=== PATIENT | male | born 1975 | race Caucasian/White ===

== ENCOUNTER 2019-06-19 10:49 | Inpatient (IN) | payer OTHER ==
[~2019-06-19] VITALS: Ht 177.8 cm; Wt 124.4 kg
[2019-06-19 11:07] VITALS: BP 122/67
--- NOTE | 2019-06-19 11:23 | NUR ---
FLU SWAB COLLECTED.
--- NOTE | 2019-06-19 11:25 | NUR ---
Patient ambulated to bed 5. RN evaluating patient at bedside.
--- NOTE | 2019-06-19 11:28 | NUR ---
Dr. Vora is evaluating the patient at bedside.
--- NOTE | 2019-06-19 11:47 | NUR ---
loom technician at bedside.
--- NOTE | 2019-06-19 13:07 | NUR ---
MD MADE AWARE OF LOW BP, AND LOW 02 SATURATION. ORDERS TO FOLLOW.
[2019-06-19] MEDS ORDERED: ALBUTEROL SULFATE/IPRATROPIU 3 ML SOL IH ONE (13:10)
[2019-06-19] MEDS ORDERED: NACL 0.9% 1,000 ML IV ONE ×3 (13:10→15:15)
[2019-06-19] MEDS ORDERED: DOXYCYCLINE 100 MG CAP PO STA (13:12)
--- NOTE | 2019-06-19 13:14 | NUR ---
Dr. Vora is evaluating the patient at bedside.
[2019-06-19] MEDS ORDERED: cefTRIAXone 1,000 MG VIAL ONE (13:23)
--- NOTE | 2019-06-19 13:26 | NUR ---
Breathing treatment administered by respiratory therapist at bedside.
[2019-06-19 14:04] LABS: BASOPHILS % (AUTO) 0.8 % (0.0-2.0); EOSINOPHILS % (AUTO) 0.3 % (0.0-4.0); HEMATOCRIT 43.5 % (36-52); HEMOGLOBIN 14.9 g/dL (12.0-18.0); LYMPHOCYTES # (AUTO) 0.6 K/uL (2.0-11.5); LYMPHOCYTES % (AUTO) 11.2 % (20.5-51.1); MEAN CORPUSCULAR HEMOGLOBIN 33 pg (27-31); MEAN CORPUSCULAR HGB CONC 34 g/dL (33-37); MEAN CORPUSCULAR VOLUME 96.9 fL (80-94); MONOCYTES # (AUTO) 0.7 K/uL (0.8-1.0); MONOCYTES % (AUTO) 12.3 % (1.7-9.3); NEUTROPHILS # (AUTO) 4.3 K/uL (1.8-7.7); NEUTROPHILS % (AUTO) 75.4 % (42.2-75.2); PLATELET COUNT (AUTO) 130 K/uL (140-450); RED BLOOD CELL COUNT(AUTO) 4.49 MIL/uL (4.20-6.10); RED CELL DISTRIBUTION WIDTH 12.7 % (11.6-13.7); WHITE BLOOD COUNT (AUTO) 5.7 K/uL (4.8-10.8)
[2019-06-19 14:18] LABS: ALBUMIN 3.6 g/dL (3.4-5.0); ANION GAP 12.4 (8-16); CARBON DIOXIDE 28.2 mmol/L (21-32); CREATININE 1.2 mg/dL (0.6-1.3); POTASSIUM 3.6 mmol/L (3.5-5.1); TOTAL BILIRUBIN 0.5 mg/dL (0.0-1.0)
--- NOTE | 2019-06-19 14:18 | NUR ---
Stable. VSS. Afebrile now. BP low. NS bolus running. All labs sent. Abx given as ordered. To be admitted. Awaiting bed.
[2019-06-19] MEDS ORDERED: MORPHINE SULFATE 2 MG/ML SYR IVP PRN (15:00)
[2019-06-19] MEDS ORDERED: HYDROcodone/APAP 5/325 MG 1 TAB TAB PO PRN (15:00)
[2019-06-19] MEDS ORDERED: DOCUSATE SODIUM 100 MG GELCAP PO PRN (15:00)
[2019-06-19] MEDS ORDERED: ONDANSETRON 4 MG/2 ML VIAL IM/IVP PRN (15:00)
[2019-06-19] MEDS ORDERED: LORazepam 2 MG/ML VIAL IM/IVP PRN (15:00)
[2019-06-19] MEDS ORDERED: ACETAMINOPHEN 325 MG TAB PO PRN (15:00)
[2019-06-19] MEDS ORDERED: CITA20TA15 PO ×2 (15:05→18:17)
[2019-06-19] MEDS ORDERED: BUS5 PO ×2 (15:05→18:17)
[2019-06-19] MEDS ORDERED: ARIP882S IM ×2 (15:05→18:17)
[2019-06-19] MEDS ORDERED: DIVA500T1 PO ×2 (15:05→18:17)
[2019-06-19] MEDS ORDERED: IBUP-1842 PO ×2 (15:05→18:17)
[2019-06-19] MEDS ORDERED: MULT-153 PO ×2 (15:05→18:17)
[2019-06-19] MEDS ORDERED: ALBUTEROL SULFATE/IPRATROPIU 3 ML SOL IH PRN (15:05)
[2019-06-19] MEDS ORDERED: DIVA250E1 PO (15:05)
[2019-06-19] MEDS ORDERED: QUET200T PO ×2 (15:05→18:17)
[2019-06-19] MEDS ORDERED: SYN.05 PO ×2 (15:05→18:17)
[2019-06-19] MEDS ORDERED: QUET25TA PO ×2 (15:05→18:17)
--- NOTE | 2019-06-19 15:33 | NUR ---
Stable. VSS. Afebrile. Mild SOB. 02 Sat WNL on 4 L NC. Has been admitted. Report to Floor. Ambulated to . Placed in bed. Nurse aware.
[2019-06-19 15:35] LABS: MAGNESIUM 1.7 mg/dL (1.8-2.4); PHOSPHORUS 3.4 mg/dL (2.5-4.9); THYROID STIMULATING HORMONE 0.69 uIU/mL (0.34-3.74)
--- NOTE | 2019-06-19 15:35 | NUR ---
RECEIVED PT FROM ER NURSE FOR CONTINUITY OF CARE. PT IS AAOX4, AMBULATORY. PT ABLE TO MAKE NEEDS KNOWN. PT HAS INTELLECTUAL DISABILITY BUT CAN MAKE DECISIONS FOR HIMSELF. PT HAS 4L O2 VIA NC RUNNING. O2 SAT IS 95%. PT DENIES SOB OR RESPIRATORY DISTRESS. PT SKIN INTACT. MRSA SWAB TAKEN AND SENT TO LAB. PT HAS RIGHT HAND 22G PATENT AND INTACT INFUSING NS BOLUS FOR MILD HYPOTENSION. DISCUSSED POC WITH PT AND CAREGIVER AND BOTH VERBALIZED UNDERSTANDING. ALL SAFETY MEASURES IN PLACE. BED IN LOW POSITION, CALL LIGHT WITHIN REACH. EXPLAINED TO PT HOW TO USE CALL LIGHT AND HE RETURNED DEMONSTRATION OR ITS USE. BOARD UPDATED. WILL ROUND FREQUENTLY ON PT.
[2019-06-19 15:44] LABS: PROTHROMBIN TIME 10.4 secs (10.8-13.4)
[2019-06-19] MEDS ORDERED: MAGNESIUM OXIDE 400 MG TAB PO SCH (15:45)
[2019-06-19 16:00] VITALS: BP 105/59
[2019-06-19] MEDS ORDERED: AZITHROMYCIN 250 MG TAB PO SCH (16:00)
[2019-06-19] MEDS: NACL 0.9% 1,000 ML IV SCH (17:14)
--- NOTE | 2019-06-19 17:27 | NUR ---
PT RESTING IN BED. SCHEDULED MEDS ADMINISTERED. PT MOTHER AT BEDSIDE. ALL NEEDS MET. PT WAS GIVEN SANDWICH WHILE HE WAITS FOR DINNER. WILL CONTINUE TO ROUND FREQUENTLY ON PT. BED IN LOW POSITION, CALL LIGHT WITHIN REACH.
--- NOTE | 2019-06-19 19:30 | NUR ---
RECEIVED PT AWAKE ALERT AND ORIENTED X3, WITH INTELLECTUAL DISABILITY, ABLE TO MAKE NEEDS KNOWN, WITH HIS MOM ON THE BED SIDE, RESP EVEN AND EASY,WITH O2 4L NC,SATS 95%, PT DENIES ANY DISCOMFORT AT THIS TIME, IV INFUSING ON RT HAND ,INTACT AND PATENT, AMBULATES TO BATHROOM,ST WITH EP=[phone] ON THE DOCK MANAGER, CALL LIGHT ON REACH.
--- NOTE | 2019-06-19 19:45 | NUR ---
ENDORSED PT TO REAL ESTATE SPECIALIST RN FOR CONTINUITY OF CARE. PT IN STABLE CONDITION AT THIS TIME.
[2019-06-19 20:00] VITALS: BP 125/73
[2019-06-19] MEDS: ALBUTEROL SULFATE/IPRATROPIU 3 ML SOL IH SCH (20:00)
[2019-06-19] MEDS: OSELTAMIVIR PHOSPHATE 75 MG CAP PO SCH (20:53)
[2019-06-19] MEDS: DIVALPROEX 500 MG TABER PO SCH (20:53)
[2019-06-19] MEDS: busPIRone 5 MG TAB PO SCH (20:55)
[2019-06-19] MEDS ORDERED: DOXYCYCLINE 100 MG CAP PO SCH (21:00)
--- NOTE | 2019-06-19 21:00 | NUR ---
PM MEDS GIVEN, PT TOLERATED WELL, CONTINUE TO MONITOR PT
--- NOTE | 2019-06-19 23:00 | NUR ---
PT SLEEPING HR= 130-138, BP 113/69, TEMP 99.6, RESP 22,DR OLSON NOTIFIED, RESIDENT{SEAMUS] CHECKED PT NO NEW ORDERS GIVEN ,CONTINUE TO MONITOR PT.
[2019-06-20] VITALS: BP 140/61
[2019-06-20] MEDS ORDERED: NACL 0.9% 1,000 ML IV ONE
[2019-06-20] MEDS: NACL 0.9% 1,000 ML IV SCH ×3 (02:16→23:55)
--- NOTE | 2019-06-20 02:30 | NUR ---
RECEIVED BEDSIDE REPORT FROM DIP PAINTER RN FOR PT'S CONTINUITY OF CARE. PT IS ASLEEP, WITH NO SIGNS OF DISTRESS. PT'S MOTHER AT BEDSIDE. WILL CONTINUE TO MONITOR PT.
--- NOTE | 2019-06-20 02:38 | NUR ---
PT SLEEPING , NO SIGN OF DISCOMFORT NOTED , ENDORSED PT TO ANOTHER NURSE FOR CONTINUITY OF CARE AT THIS TIME
[2019-06-20 04:00] VITALS: BP 104/53
[2019-06-20] MEDS ORDERED: CRUSHER, PILL MC ONE (05:57)
[2019-06-20] MEDS: LEVOTHYROXINE 0.05 MG TAB PO SCH (06:07)
--- NOTE | 2019-06-20 06:07 | NUR ---
ADMINISTERED SCHEDULED PO MEDICATION ORDERED. PT TOLERATED IT WELL. PT TEACHING GIVEN, PT AND MOTHER VERBALIZED UNDERSTANDING. PT'S NEEDS MET, DENIES ANY PAIN OR DISCOMFORT. WILL ENDORSE TO AM SHIFT RN FOR PT'S CONTINUITY OF CARE.
[2019-06-20] MEDS ORDERED: BENZONATATE 100 MG CAPLF PO PRN (06:40)
--- NOTE | 2019-06-20 07:24 | NUR ---
SHIFT REPORT RECEIVED FROM FITNESS PROFESSIONAL NURSE. PT IS IN BED AWAKE AND RESPONDING. NO DISTRESS NOTED. FAMILY BY BEDSIDE. CALL LIGHT IN REACH.
[2019-06-20 07:36] LABS: CHOL/HDL RATIO 2.8 (1-4.5)
[2019-06-20] MEDS: BUDESONIDE 0.5 MG/2 ML NEBU INH SCH ×2 (07:44→20:12)
[2019-06-20] MEDS: ALBUTEROL SULFATE/IPRATROPIU 3 ML SOL IH SCH ×3 (07:45→20:10)
[2019-06-20 08:00] VITALS: BP 108/61
--- NOTE | 2019-06-20 08:36 | NUR ---
PATIENT HAS BEEN SCREENED AND CATEGORIZED MODERATE NUTRITION RISK. PATIENT WILL BE SEEN WITHIN 3-5 DAYS OF ADMISSION. 06/22/19 06/24/[address]
[2019-06-20] MEDS ORDERED: AZITHROMYCIN 250 MG TAB PO SCH (09:00)
[2019-06-20] MEDS: MULTIVITAMIN 1 TAB PO SCH (09:07)
[2019-06-20] MEDS: OSELTAMIVIR PHOSPHATE 75 MG CAP PO SCH ×2 (09:07→20:05)
[2019-06-20] MEDS: QUEtiapine FUMARATE 25 MG TAB PO SCH (09:08)
[2019-06-20] MEDS: CITALOPRAM 20 MG TAB PO SCH (09:08)
[2019-06-20] MEDS: QUEtiapine FUMARATE 100 MG TAB PO SCH ×3 (09:09→17:07)
[2019-06-20] MEDS: DIVALPROEX 500 MG TABER PO SCH ×2 (09:10→20:05)
[2019-06-20] MEDS: busPIRone 5 MG TAB PO SCH ×2 (09:11→20:05)
--- NOTE | 2019-06-20 09:30 | NUR ---
PT IS IN BED AT THIS TIME. NO DISTRESS NOTED. IV PATENT. PT IS IN STABLE CONDITION. FAMILY BY BEDSIDE.
[2019-06-20 12:00] VITALS: BP 108/56
--- NOTE | 2019-06-20 12:00 | NUR ---
PT IS IN BED WITH NO SIGNS OF DISTRESS. FAMILY BY BEDSIDE. CALL LIGHT IN REACH.
[2019-06-20 16:00] VITALS: BP 110/65
--- NOTE | 2019-06-20 16:30 | NUR ---
PT IS IN BED AT THIS. IV LINE FROM RIGHT HAND WAS ACCIDENTALLY REMOVED BY THE PATIENT. NO ACTIVE BLEEDING NOTED. CATHETER INTACT. INSERTED IV TO LEFT WRIST. PT TOLERATED WELL. FAMILY BY BEDSIDE. CALL LIGHT IN REACH.
[2019-06-20 17:12] LABS: APPEARANCE,URINE CLEAR (CLEAR); BILIRUBIN,URINE NEGATIVE (NEGATIVE); BLOOD, URINE NEGATIVE (NEGATIVE); COLOR,URINE YELLOW (YELLOW); LEUKOCYTE ESTERASE ,URINE NEGATIVE (NEGATIVE); NITRITE, URINE NEGATIVE (NEGATIVE); UGLUCOSE NEGATIVE (NEGATIVE)
[2019-06-20 17:20] LABS: BARBITURATE, URINE NEG. ng/ml (NEG <=200); BENZODIAZEPINE, URINE NEG. ng/mL (NEG <=200); CANNABINOID, URINE NEG. ng/mL (NEG <=50); COCAINE, URINE NEG. ng/mL (NEG <=300); OPIATE, URINE NEG. ng/mL (NEG <=2000); PHENCYCLIDINE SCREEN,URINE NEG. ng/mL (NEG <=25)
--- NOTE | 2019-06-20 19:19 | NUR ---
SHIFT REPORT GIVEN TO MEDICAL COLLECTIONS NURSE. PT IS IN BED IN STABLE CONDITION. NO DISTRESS NOTED. CALL LIGHT IN REACH.
--- NOTE | 2019-06-20 19:20 | NUR ---
RECEIVED PT FROM ER NURSE FOR CONTINUITY OF CARE. PT IS AAOX4, AMBULATORY. PT ABLE TO MAKE NEEDS KNOWN. PT HAS INTELLECTUAL DISABILITY BUT CAN MAKE DECISIONS FOR HIMSELF. PT DENIES SOB OR RESPIRATORY DISTRESS. PT SKIN INTACT. IV SITE ON LEFT HAND 22G, PATENT AND INTACT INFUSING FLUID MD ORDERED. ALL SAFETY MEASURES IN PLACE. BED IN LOW POSITION, CALL LIGHT WITHIN REACH.
[2019-06-20 20:00] VITALS: BP_SYST 117; BP_SYST 139; BP_DIAS 75; BP_DIAS 86
--- NOTE | 2019-06-20 20:05 | NUR ---
GIVEN BUSPAR, DEPAKOTE, AND TAMIFLU MD ORDERED. PT TOLERATED WELL.
--- NOTE | 2019-06-20 23:55 | NUR ---
VS CHECKED, WITHIN PT'S BASELINE. WILL CONTINUE TO MONITOR.
[2019-06-21] VITALS: BP 117/75
[2019-06-21] MEDS ORDERED: VANCOMYCIN PER PHARMACY MC PRN (00:50)
[2019-06-21] MEDS ORDERED: VANCOMYCIN 1,000 MG VIAL ONE ×2 (01:13→02:46)
[2019-06-21] MEDS: VANCOMYCIN 1,000 MG in NACL 0.9% 250 ML IV SCH ×2 (01:22→02:54)
--- NOTE | 2019-06-21 01:22 | NUR ---
GIVEN VANCOMYCIN MD ORDERED. PT TOLERATED WELL.
--- NOTE | 2019-06-21 02:54 | NUR ---
GIVEN 2ND BAG OF VANCOMYCIN MD ORDERED. PT TOLERATED WELL.
[2019-06-21 04:00] VITALS: BP 121/70
--- NOTE | 2019-06-21 05:02 | NUR ---
PT AWAKE, LYING ON BED. NO ACUTE DISTRESS NOTED.
[2019-06-21] MEDS: LEVOTHYROXINE 0.05 MG TAB PO SCH (05:43)
--- NOTE | 2019-06-21 05:43 | NUR ---
GIVEN SYNTHROID MD ORDERED. PT TOLERATED WELL.
--- NOTE | 2019-06-21 06:38 | NUR ---
PT IN STABLE CONDITION. WILL ENDORSE PT TO DAY SHIFT NURSE FOR CONTINUOUS CARE.
[2019-06-21] MEDS: NACL 0.9% 1,000 ML IV SCH ×2 (06:58→16:51)
--- NOTE | 2019-06-21 07:06 | NUR ---
RECEIVED REPORT FROM NIGHT NURSE. PT IN THE BATHROOM, HAD A BOWEL MOVEMENT AT TIME OF BEDSIDE REPORT. FAMILY MEMBER AT THE BEDSIDE. DENIES PAIN, NO DISTRESS NOTED. IV SITE IN PLACE, PATENT AND ASYMPTOMATIC INFUSING PER ORDER IN RIGHT HAND 24G. RESPIRATIONS EVEN AND UNLABORED ON O2 4L NC. SAFETY MEASURES IN PLACE. CALL LIGHT WITHIN REACH, BED IN LOW POSITION. WILL CONTINUE TO MONITOR.
[2019-06-21 07:09] LABS: BASOPHILS % (AUTO) 0.7 % (0.0-2.0); EOSINOPHILS % (AUTO) 0.8 % (0.0-4.0); HEMATOCRIT 40.3 % (36-52); HEMOGLOBIN 13.3 g/dL (12.0-18.0); LYMPHOCYTES # (AUTO) 1.2 K/uL (2.0-11.5); LYMPHOCYTES % (AUTO) 33.7 % (20.5-51.1); MEAN CORPUSCULAR HEMOGLOBIN 32 pg (27-31); MEAN CORPUSCULAR HGB CONC 33 g/dL (33-37); MEAN CORPUSCULAR VOLUME 97.1 fL (80-94); MONOCYTES # (AUTO) 0.7 K/uL (0.8-1.0); MONOCYTES % (AUTO) 19.4 % (1.7-9.3); NEUTROPHILS # (AUTO) 1.6 K/uL (1.8-7.7); NEUTROPHILS % (AUTO) 45.4 % (42.2-75.2); PLATELET COUNT (AUTO) 95 K/uL (140-450); RED BLOOD CELL COUNT(AUTO) 4.15 MIL/uL (4.20-6.10); RED CELL DISTRIBUTION WIDTH 12.8 % (11.6-13.7); WHITE BLOOD COUNT (AUTO) 3.4 K/uL (4.8-10.8)
[2019-06-21] MEDS: ALBUTEROL SULFATE/IPRATROPIU 3 ML SOL IH SCH ×3 (07:31→19:24)
[2019-06-21] MEDS: BUDESONIDE 0.5 MG/2 ML NEBU INH SCH ×2 (07:32→19:24)
--- NOTE | 2019-06-21 07:47 | NUR ---
TOLERATED INCENTIVE SPIROMETRY THERAPY WELL WITHOUT ADVERSE REACTIONS NOTED ENCOURAGED PATIENT TO USE INCENTIVE SPIROMETRY EVERY 1-2 HOURS WHILE AWAKE MOTHER IN ROOM
[2019-06-21 07:54] LABS: POTASSIUM 3.8 mmol/L (3.5-5.1)
[2019-06-21 07:55] LABS: ANION GAP 5.5 (8-16); CARBON DIOXIDE 36.3 mmol/L (21-32); CREATININE 0.7 mg/dL (0.6-1.3)
[2019-06-21 08:00] VITALS: BP 139/77
[2019-06-21 08:18] LABS: MAGNESIUM 2.2 mg/dL (1.8-2.4); PHOSPHORUS 2.8 mg/dL (2.5-4.9)
[2019-06-21] MEDS: QUEtiapine FUMARATE 25 MG TAB PO SCH (09:41)
--- NOTE | 2019-06-21 09:41 | NUR ---
MEDICATIONS ADMINISTERED PER ORDER. PT TOLERATED WELL, NO DISTRESS NOTED. DENIES PAIN AT THIS TIME. SAFETY MEASURES IN PLACE, CALL LIGHT WITHIN REACH, WILL CONTINUE TO MONITOR.
[2019-06-21] MEDS: MULTIVITAMIN 1 TAB PO SCH (09:42)
[2019-06-21] MEDS: CITALOPRAM 20 MG TAB PO SCH (09:42)
[2019-06-21] MEDS: OSELTAMIVIR PHOSPHATE 75 MG CAP PO SCH ×2 (09:42→20:48)
[2019-06-21] MEDS: QUEtiapine FUMARATE 100 MG TAB PO SCH ×3 (09:42→17:13)
[2019-06-21] MEDS: DIVALPROEX 500 MG TABER PO SCH ×2 (09:42→20:47)
[2019-06-21] MEDS: busPIRone 5 MG TAB PO SCH ×2 (09:43→20:47)
--- NOTE | 2019-06-21 11:29 | NUR ---
PT IN BED ASLEEP, NO DISTRESS NOTED. SAFETY MEASURES IN PLACE, CALL LIGHT WITHIN REACH. WILL CONTINUE TO MONITOR.
[2019-06-21 12:00] VITALS: BP 135/79
[2019-06-21] MEDS: VANCOMYCIN 1,500 MG in DEXTROSE 5% 500 ML IV SCH ×2 (12:25→20:48)
--- NOTE | 2019-06-21 12:30 | NUR ---
MEDICATIONS ADMINISTERED PER ORDER. PT TOLERATED WELL, NO DISTRESS NOTED. WILL CONTINUE TO MONITOR.
--- NOTE | 2019-06-21 14:08 | NUR ---
DC PLANNIN YRS OLD MALE PATIENT WAS ADMITTED FROM [facility](ASSISTED [facility]IV[facility]) WITH A DX OF INFLUENZA ,HYPOXIA AND PNA. PT HAS A HX OF MILD INTELLECTUAL DISABILITY, TOURETTE'S SYNDROME ,ANXIETY DISORDER AND HYPOTHYROIDISM . CXRAY SHOWED PNEUMONIA. STARTED IVF ,ROCEPHIN AND VIBRAMYCIN PO ,TAMIFUL 75MG PO BLOOD SPUTUM AND URINE CULTURE PENDING RT PROTOCOL. DC PLAN PER [facility] VS HOME FOR IV ABX CM TO FOLLOW. Addendum: 06/23/19 at 1208 by Merissa Painting CM DC PLANNING: PATIENT HAS A DC ORDER TO GO TO SNF TO CONTINUE IV ABX , CALLED PT'S MOTHER [phone] SPOKE WITH ZAHEER. PER MOTHER WANTED SOME WHERE CLOSE TO [facility] AND ALSO THE PHYSICIAN'S TO FOLLOW. PROVIDED SOME SNF AROUND THE AREA ZAHEER CHOSE [facility]. IM LETTER AND CHOICE OF VENDOR GIVEN SIGNED BY THE MOTHER. FAXED ALL THE PAPER WORK TO [facility] ,RECEIVED A CALL FROM [facility] STATED WILL ACCEPT PATIENT AND CAN GO TO ROOM 25A . Addendum: 06/23/19 at 1424 by Merissa Painting CM DC PLANNING: PER MOTHER ZAHEER CHANGED HER MIND AND WANTED HER SON TO BE CLOSER TO [facility] AND CHOSE [facility] . LETI FROM [facility] CAME AND TALKED TO PATIENT AND MOTHER AND ACCEPTED PATIENT. PT CAN GO TO ROOM 16B [facility] BED, # TO GIVE REPORT [phone], CALLED [facility] SPOKE WITH VILMA FISCHER # [phone] ARRANGED TRANSPORT WITH [facility] ROLL OVER LOADER TIME 3PM. NOTIFIED JANELLE JAVIER.
--- NOTE | 2019-06-21 14:58 | NUR ---
MEDICATIONS ADMINISTERED PER ORDER, PT TOLERATED WELL, NO DISTRESS NOTED, DENIES PAIN. FAMILY MEMBERS AT THE BEDSIDE. SAFETY MEASURES IN PLACE. CALL LIGHT WITHIN REACH. WILL CONTINUE TO MONITOR.
[2019-06-21 16:00] VITALS: BP 117/70
--- NOTE | 2019-06-21 17:15 | NUR ---
MEDICATIONS ADMINISTERED PER ORDER. PT TOLERATED WELL. NO DISTRESS NOTED. LINEN AND GOWN CHANGED AT THIS TIME. FAMILY MEMBERS AT THE BEDSIDE. SAFETY MEASURES IN PLACE. CALL LIGHT WITHIN REACH.
--- NOTE | 2019-06-21 19:21 | NUR ---
REPORT GIVEN TO NIGHT NURSE FOR CONTINUITY OF CARE.
--- NOTE | 2019-06-21 19:30 | NUR ---
RECEIVED FROM AM RN IN BED AWAKE AND ALERT. MOTHER AT BEDSIDE. NO COMPLAINTS DONE. WILL CONTINUE WITH CARE FOR THE NIGHT. AFEBRILE. CARE PLANS DISCUSSED WITH THEM. CALL LIGHT WITH IN REACH. ON ISOLATION PRECAUTIONS FOR DROPLET INFLUENZA A.
--- NOTE | 2019-06-21 19:36 | NUR ---
PT PLACED ON 3LNC
[2019-06-21 20:00] VITALS: BP 116/72
--- NOTE | 2019-06-21 20:00 | NUR ---
RECEIVED PT. WITH IVF SITE D/CD BY PT. ACCIDENTALLY PER AM RN. INSERTED NEW IVF LINE TO RIGHT WRIST #22. TOLERATED WELL WITH GOOD BLOOD RETURN. MOTHER AT BEDSIDE AND ABLE TO VERBALIZE NEEDS WELL. ISOLATION PRECAUTIONS FOR FLU TYPE A. AFEBRILE.
--- NOTE | 2019-06-21 22:30 | NUR ---
PT. AWAKE AND WATCHING TV. ENCOURAGED TO SLEEP A ND REST. STATED HE WILL LATER. CALL LIGHT WITH IN REACH. MOTHER ALREADY SLEEPING . REMINDED TO CALL FOR ANY HELP HE MAY NEED. "OK"
[2019-06-22] VITALS: BP 125/64
--- NOTE | 2019-06-22 00:30 | NUR ---
SLEEPING AT THIS TIME. WOKE UP EASILY WHEN VITAL SIGNS TAKEN. NO COMPLAINTS DONE . TELEMETRY MONITORING.
--- NOTE | 2019-06-22 02:20 | NUR ---
SLEEPING. MOTHER AT BEDSIDE. CALL LIGHT WITH IN REACH. NO SOB. NO RESTLESSNESS.
[2019-06-22] MEDS: NACL 0.9% 1,000 ML IV SCH ×3 (02:58→22:38)
[2019-06-22 04:00] VITALS: BP 122/70
[2019-06-22] MEDS: VANCOMYCIN 1,500 MG in DEXTROSE 5% 500 ML IV SCH ×3 (05:38→21:23)
[2019-06-22] MEDS: LEVOTHYROXINE 0.05 MG TAB PO SCH (05:38)
--- NOTE | 2019-06-22 07:02 | NUR ---
AWAKE SINCE 5 AM WATCHING TV. NO COMPLAINTS OF ANY PAIN DONE. AFEBRILE.
--- NOTE | 2019-06-22 07:03 | NUR ---
RECEIVED REPORT FROM CENTERLESS GRINDER SET UP OPERATOR NURSE AT BEDSIDE FOR CONTINUITY OF CARE. PT AWAKE AND ALERT SITTING UP IN BED WATCHING TV. MOTHER AT BEDSIDE. NO COMPLAINTS AT THIS TIME. RESPIRATIONS EVEN AND UNLABORED ON 3L O2 VIA NC. UPDATED BOARD. IV IN PLACE ON RIGHT WRIST AT 22G, PATENT, INTACT, WITH IVF INFUSING WELL. PLAN OF CARE DISCUSSED WITH PATIENT AND MOTHER AT BEDSIDE, THEY VERBALIZED UNDERSTANDING. SAFETY AND DROPLET PRECAUTIONS IN PLACE, CALL LIGHT WITHIN REACH, WILL CONTINUE TO MONITOR PATIENT.
[2019-06-22 07:09] LABS: BASOPHILS % (AUTO) 0.3 % (0.0-2.0); EOSINOPHILS # (AUTO) 0.1 K/uL (0-0.4); EOSINOPHILS % (AUTO) 2.8 % (0.0-4.0); HEMATOCRIT 39.8 % (36-52); HEMOGLOBIN 13.4 g/dL (12.0-18.0); LYMPHOCYTES # (AUTO) 1.4 K/uL (2.0-11.5); LYMPHOCYTES % (AUTO) 32.3 % (20.5-51.1); MEAN CORPUSCULAR HEMOGLOBIN 33 pg (27-31); MEAN CORPUSCULAR HGB CONC 34 g/dL (33-37); MEAN CORPUSCULAR VOLUME 96.4 fL (80-94); MONOCYTES # (AUTO) 0.6 K/uL (0.8-1.0); MONOCYTES % (AUTO) 12.7 % (1.7-9.3); NEUTROPHILS # (AUTO) 2.2 K/uL (1.8-7.7); NEUTROPHILS % (AUTO) 51.9 % (42.2-75.2); PLATELET COUNT (AUTO) 111 K/uL (140-450); RED BLOOD CELL COUNT(AUTO) 4.13 MIL/uL (4.20-6.10); RED CELL DISTRIBUTION WIDTH 12.6 % (11.6-13.7); WHITE BLOOD COUNT (AUTO) 4.3 K/uL (4.8-10.8)
[2019-06-22 07:18] LABS: ANION GAP 8.3 (8-16); CARBON DIOXIDE 38.4 mmol/L (21-32); CREATININE 0.7 mg/dL (0.6-1.3); POTASSIUM 3.7 mmol/L (3.5-5.1)
[2019-06-22 08:00] VITALS: BP 122/76
[2019-06-22] MEDS: BUDESONIDE 0.5 MG/2 ML NEBU INH SCH ×2 (08:02→19:45)
[2019-06-22] MEDS: ALBUTEROL SULFATE/IPRATROPIU 3 ML SOL IH SCH ×3 (08:02→19:45)
--- NOTE | 2019-06-22 08:13 | NUR ---
TOLERATED INCENTIVE SPIROMETRY THERAPY WELL WITHOUT INCIDENT ENCOURAGED PATIENT WITH ACKNOWLEDGEMENT TO USE INCENTIVE SPIROMETRY EVERY 1-2 HOURS WHILE AWAKE
[2019-06-22 08:28] LABS: MAGNESIUM 1.9 mg/dL (1.8-2.4); PHOSPHORUS 3.4 mg/dL (2.5-4.9)
--- NOTE | 2019-06-22 08:30 | NUR ---
RECEIVED CRITICAL LAB VALUE VANCO TROUGH OF 23.5. 0500 VANCO GIVEN AT 0538, VANCO TROUGH DRAWN AT 0606 PER ODALYS FURNITURE REPRODUCER. PHARMACIST KAROLINA AWARE, NEW VANCO TROUGH WILL BE DRAWN BEFORE 1300 DOSE. PATIENT AND MOTHER AT BEDSIDE AWARE. SPOKE WITH ODALYS TO COORDINATE. WILL CONTINUE TO MONITOR PATIENT.
--- NOTE | 2019-06-22 08:45 | NUR ---
DR CRAMER IN TO SEE THE PATIENT.
[2019-06-22] MEDS: QUEtiapine FUMARATE 100 MG TAB PO SCH ×3 (09:08→16:43)
[2019-06-22] MEDS: MULTIVITAMIN 1 TAB PO SCH (09:08)
[2019-06-22] MEDS: QUEtiapine FUMARATE 25 MG TAB PO SCH (09:08)
[2019-06-22] MEDS: DIVALPROEX 500 MG TABER PO SCH ×2 (09:08→21:23)
[2019-06-22] MEDS: OSELTAMIVIR PHOSPHATE 75 MG CAP PO SCH ×2 (09:08→21:24)
[2019-06-22] MEDS: busPIRone 5 MG TAB PO SCH ×2 (09:08→21:24)
[2019-06-22] MEDS: CITALOPRAM 20 MG TAB PO SCH (09:08)
--- NOTE | 2019-06-22 09:10 | NUR ---
ORDERED MEDICATIONS GIVEN. PATIENT TOLERATED THEM WELL. MOTHER AT BEDSIDE. WILL CONTINUE TO MONITOR PATIENT.
--- NOTE | 2019-06-22 11:57 | NUR ---
ORDERED MEDICATION GIVEN. PATIENT TOLERATED THEM WELL, MOTHER AND BROTHER AT BEDSIDE. PATIENT HAS NO COMPLAINTS AT THIS TIME. SAFETY AND ISOLATION PRECAUTION IN PLACE, CALL LIGHT WITHIN REACH, WILL CONTINUE TO MONITOR PATIENT.
[2019-06-22 12:00] VITALS: BP 123/79
--- NOTE | 2019-06-22 13:00 | NUR ---
SPUTUM SAMPLE SENT TO LAB, WILL WAIT FOR RESULTS.
--- NOTE | 2019-06-22 13:58 | NUR ---
RECEIVED CALL FROM PHARMACIST HANY TURCIOS TROUGH WNL, HANY CAN BE GIVEN. HANY GIVEN. ORDERED MEDICATION GIVEN. PATIENT TOLERATED THEM WELL, MOTHER AND BROTHER AT BEDSIDE. SAFETY AND ISOLATION PRECAUTION IN PLACE, CALL LIGHT WITHIN REACH, WILL CONTINUE TO MONITOR PATIENT.
[2019-06-22 16:00] VITALS: BP 125/79
--- NOTE | 2019-06-22 16:43 | NUR ---
ORDERED MEDICATION GIVEN. PATIENT TOLERATED THEM WELL, MOTHER AND BROTHER AT BEDSIDE. VS WNL. SAFETY AND ISOLATION PRECAUTION IN PLACE, CALL LIGHT WITHIN REACH, WILL CONTINUE TO MONITOR PATIENT.
--- NOTE | 2019-06-22 19:21 | NUR ---
REPORT GIVEN TO BONDERITE OPERATOR NURSE AT BEDSIDE FOR CONTINUITY OF CARE. PATIENT IN STABLE CONDITION.
--- NOTE | 2019-06-22 19:30 | NUR ---
RECEIVED FROM AM RN IN BED SITTING UP WATCHING TV. MOTHER AT BEDSIDE. NO COMPLAINTS OF PAIN. GOOD AFFECT. CALL LIGHT WITH N REACH. ENCOURAGED TO CALL FOR ANY HELP HE MAY NEED. AFEBRILE. NO NOTED COUGHING AT THIS TIME. ISOLATION PRECAUTION RT DX. FLU . IVF SITE INTACT. NO INFILTRATION NOTED.
--- NOTE | 2019-06-22 19:54 | NUR ---
RECEIVED PT ON 3L NC WITH AN SP02 OF 93% AND A CLEAR DIMINISHED BREATH SOUNDS ON UPPER LOBES. NO RESPIRATORY DISTRESS NOTED AT THIS TIME. HHN TX GIVEN ORDERED WITH NO ADVERSE REACTION. FAMILY AT BEDSIDE. WILL CONITINUE TO MONITOR PT.
--- NOTE | 2019-06-22 23:20 | NUR ---
PT. CHECKED. SLEEPING. MOTHER STILL AWAKE ON CELL PHONE . NO COMPLAINTS DONE. CALL LIGHT WITH IN REACH. PER MOTHER THEY ARE EXCITED TO BE DISCHARGED TOMORROW.
[2019-06-23 00:06] VITALS: BP 141/95
[2019-06-23] MEDS: NACL 0.9% 1,000 ML IV SCH (02:50)
--- NOTE | 2019-06-23 02:50 | NUR ---
PT. SLEEPING WELL AT THIS TIME. MOTHER AT BEDSIDE AWAKE. ENCOURAGED TO CALL FOR ANY HELP SHE MAY NEED. "OK" NO RESTLESSNESS . NO COUGHING AT THIS TIME.
[2019-06-23] MEDS: VANCOMYCIN 1,500 MG in DEXTROSE 5% 500 ML IV SCH ×2 (05:29→13:20)
[2019-06-23] MEDS: LEVOTHYROXINE 0.05 MG TAB PO SCH (05:29)
--- NOTE | 2019-06-23 06:08 | NUR ---
SLEEPING. NO RESTLESSNESS. CALL LIGHT AT BEDSIDE FOR EASY ACCESS. CTAB. MOTHER AT BEDSIDE WHOLE NIGHT. NO COMPLAINTS DONE. PT. AFEBRILE.
--- NOTE | 2019-06-23 06:42 | NUR ---
Late entry. Confirmed that 0.9 NS IV began at 1350 and ended at 1450. IV Rocephin began 1400 and ended 1430.
--- NOTE | 2019-06-23 07:34 | NUR ---
SHIFT REPORT RECEIVED FROM FITNESS CLUB MANAGER NURSE. PT IS RESTING IN BED AT THIS TIME. FAMILY BE BEDSIDE. NO COMPLAINS OF PAIN. CALL LIGHT IN REACH.
[2019-06-23 07:55] LABS: BASOPHILS % (AUTO) 0.3 % (0.0-2.0); EOSINOPHILS # (AUTO) 0.1 K/uL (0-0.4); EOSINOPHILS % (AUTO) 3.8 % (0.0-4.0); HEMATOCRIT 42.9 % (36-52); HEMOGLOBIN 14.4 g/dL (12.0-18.0); LYMPHOCYTES # (AUTO) 1.1 K/uL (2.0-11.5); LYMPHOCYTES % (AUTO) 35.4 % (20.5-51.1); MEAN CORPUSCULAR HEMOGLOBIN 33 pg (27-31); MEAN CORPUSCULAR HGB CONC 34 g/dL (33-37); MEAN CORPUSCULAR VOLUME 96.8 fL (80-94); MONOCYTES # (AUTO) 0.4 K/uL (0.8-1.0); MONOCYTES % (AUTO) 12.4 % (1.7-9.3); NEUTROPHILS # (AUTO) 1.5 K/uL (1.8-7.7); NEUTROPHILS % (AUTO) 48.1 % (42.2-75.2); PLATELET COUNT (AUTO) 131 K/uL (140-450); RED BLOOD CELL COUNT(AUTO) 4.43 MIL/uL (4.20-6.10); RED CELL DISTRIBUTION WIDTH 12.9 % (11.6-13.7); WHITE BLOOD COUNT (AUTO) 3.1 K/uL (4.8-10.8)
[2019-06-23 08:00] VITALS: BP 128/85
--- NOTE | 2019-06-23 08:04 | NUR ---
AWAKE AND ALERT NO SOB NOTED PATIENT WITH BREAKFAST TRAY DECISION UNIT RN TO ATTEMPT HHN THERAPY AND RESPIRATORY DRUGS AT A LATER TIME
[2019-06-23 08:05] LABS: ANION GAP 4.5 (8-16); CREATININE 0.8 mg/dL (0.6-1.3); POTASSIUM 4.1 mmol/L (3.5-5.1)
[2019-06-23 08:11] LABS: PHOSPHORUS 3.9 mg/dL (2.5-4.9)
[2019-06-23] MEDS: QUEtiapine FUMARATE 100 MG TAB PO SCH ×2 (08:22→12:10)
[2019-06-23] MEDS: DIVALPROEX 500 MG TABER PO SCH (08:22)
[2019-06-23] MEDS: MULTIVITAMIN 1 TAB PO SCH (08:22)
[2019-06-23] MEDS: QUEtiapine FUMARATE 25 MG TAB PO SCH (08:22)
[2019-06-23] MEDS: CITALOPRAM 20 MG TAB PO SCH (08:23)
[2019-06-23] MEDS: OSELTAMIVIR PHOSPHATE 75 MG CAP PO SCH (08:23)
[2019-06-23] MEDS: busPIRone 5 MG TAB PO SCH (08:23)
[2019-06-23 08:27] LABS: CARBON DIOXIDE 42.6 mmol/L (21-32)
--- NOTE | 2019-06-23 08:39 | NUR ---
REVIEWED ABG ORDER WITH DR EVAN FUENTES MD REQUEST ROOM AIR DRAW
[2019-06-23] MEDS: ALBUTEROL SULFATE/IPRATROPIU 3 ML SOL IH SCH ×2 (08:49→14:04)
[2019-06-23] MEDS: BUDESONIDE 0.5 MG/2 ML NEBU INH SCH (08:50)
--- NOTE | 2019-06-23 09:02 | NUR ---
POST HHN THERAPY PLACED PATIENT ON ROOM AIR FOR ABG DRAW PATIENT AND MOTHER AWARE
--- NOTE | 2019-06-23 09:30 | NUR ---
PT IS IN BED ALERT AND AWAKE AND RESPONSIVE. NO DISTRESS NOTED. NO COMPLAINS OF PAIN. FAMILY BE BEDSIDE. CALL LIGHT IN REACH.
--- NOTE | 2019-06-23 10:05 | NUR ---
ABG COMPLETED PRESSURE APPLIED TO PUNCTURE SITE NO ADVERSE REACTIONS NOTED POST PUNCTURE PLACED PATIENT BACK ON SUPPLEMENTAL OXYGEN AT 3 LPM VIA NC
--- NOTE | 2019-06-23 10:16 | NUR ---
REVIEWED ABG SAMPLE REPORT ON ROOM AIR WITH DR EVAN DICKERSON NO NEW ORDERS
[2019-06-23] MEDS ORDERED: NACL 0.45% 1,000 ML IV SCH (10:20)
[2019-06-23] MEDS ORDERED: methylPREDNISolone SS 40 MG/ML VIAL IVP SCH (11:00)
--- NOTE | 2019-06-23 12:36 | NUR ---
PT IS IN BED ALERT AND AWAKE AND RESPONSIVE. NO DISTRESS NOTED. NO COMPLAINS OF PAIN. FAMILY BE BEDSIDE. CALL LIGHT IN REACH.
[2019-06-23] MEDS ORDERED: ALBU3SOL83 IH ×2 (14:22)
[2019-06-23] MEDS ORDERED: VANC1.5P7 IV ×2 (14:22→14:48)
[2019-06-23] MEDS ORDERED: PUL.5N INH (14:22)
[2019-06-23] MEDS ORDERED: ROC1PM IV (14:22)
[2019-06-23] MEDS ORDERED: BENZ100C6 PO (14:22)
[2019-06-23] MEDS ORDERED: TAM75 PO (14:22)
[2019-06-23] MEDS ORDERED: ACET-1182 PO (14:22)
--- NOTE | 2019-06-23 15:20 | NUR ---
PT WAS DISCHARGED TODAY. PT WAS TAK[facility] BY EMS PERSONALS [facility]. PT HAS O2 3L NC. REPORT GIVEN TO YAYA GARCIA. PT WILL BE IN ROOM [address] DESIR. PT WAS SENT WITH IV TO CONTINUE ANTIBIOTICS. PT WAS ACCOMPANIED BY MOTHER. DISCHARGE INSTRUCTIONS GIVEN TO PATIENT. PT'S MOTHER SIGNED DISCHARGE PAPERS. SKIN INTACT. PT WAS ALERT AND STABLE AT DISCHARGE. ID BAND REMOVED.
== END 2019-06-23 15:25 | DRG 871 ==
LOC: MED 10:49 → MTU 14:58
PROVIDERS: ADMIT General Practice; ATTEND General Practice
DX: A41.9 Sepsis, unspecified organism (principal); J10.00 Influenza due to other identified influenza virus with unspecified type of pneumonia; J96.01 Acute respiratory failure with hypoxia; J98.11 Atelectasis; E03.9 Hypothyroidism, unspecified; F41.9 Anxiety disorder, unspecified; F70 Mild intellectual disabilities; F95.2 Tourette's disorder; E83.42 Hypomagnesemia; G47.33 Obstructive sleep apnea (adult) (pediatric); Z79.899 Other long term (current) drug therapy
CPT/HCPCS: 36415; 36600; 71045; 80048; 80053; 80202; 80305; 81003; 82803; 82948; 83036; 83605; 83690; 83735; 83880; 84100; 84443; 85025; 85610; 85730; 87040; 87081; 87804; 94640; 96365; 97112; 97116; 97530; 99285; J0696; J2920; J3370; J7030; J7060; J7620; J7626; Q0092

== ENCOUNTER 2020-07-18 15:04 | Emergency (ER) | payer OTHER ==
[~2020-07-18] VITALS: Ht 175.3 cm; Wt 79.4 kg
[~2020-07-18 15:04] MED LIST: ACET-1182 PO; ALBU3SOL83 IH; ARIP882S IM; BENZ100C6 PO; BUS5 PO; CITA20TA15 PO; DIVA500T1 PO; MULT-2112 PO; PUL.5N INH; QUET200T PO; QUET25TA PO; ROC1PM IV; SYN.05 PO; TAM75 PO; VANC1.5P7 IV
[2020-07-18 15:16] VITALS: BP 136/85
--- NOTE | 2020-07-18 15:20 | NUR ---
Pt ambulated to ER bed 1 with a steady gait.
--- NOTE | 2020-07-18 15:24 | NUR ---
44 Y/O MALE BIB CAREGIVER FROM [facility] FOR SOB, STATES PT WAS RECENTLY DX WITH PNA 07/02/20, HAD ABX PRESCRIBED AND HOME O2 AT 2L SPO2 ABOVE 90%. IN TRIAGE PT 87% ON 2L NC, PLACED ON 4L SPO2 AT 96%. LUNGS ARE DIMINISHED AT BILATERAL BASES. PMH: DEVELOPMENT DISABLED NKA
--- NOTE | 2020-07-18 15:59 | NUR ---
hydraulic controls technician at pt bedside.
--- NOTE | 2020-07-18 16:02 | NUR ---
product/device technologist at pt bedside.
--- NOTE | 2020-07-18 16:07 | NUR ---
EMT at pt bedside for EKG.
[2020-07-18 16:25] LABS: BASOPHILS % (AUTO) 0.6 % (0.0-2.0); EOSINOPHILS # (AUTO) 0.1 K/uL (0-0.4); EOSINOPHILS % (AUTO) 2.5 % (0.0-4.0); HEMATOCRIT 41.5 % (36-52); HEMOGLOBIN 14.1 g/dL (12.0-18.0); LYMPHOCYTES # (AUTO) 1.7 K/uL (2.0-11.5); LYMPHOCYTES % (AUTO) 33.4 % (20.5-51.1); MEAN CORPUSCULAR HEMOGLOBIN 32 pg (27-31); MEAN CORPUSCULAR HGB CONC 34 g/dL (33-37); MONOCYTES # (AUTO) 0.4 K/uL (0.8-1.0); MONOCYTES % (AUTO) 7.9 % (1.7-9.3); NEUTROPHILS # (AUTO) 2.9 K/uL (1.8-7.7); NEUTROPHILS % (AUTO) 55.6 % (42.2-75.2); PLATELET COUNT (AUTO) 126 K/uL (140-450); RED BLOOD CELL COUNT(AUTO) 4.46 MIL/uL (4.20-6.10); RED CELL DISTRIBUTION WIDTH 13.1 % (11.6-13.7); WHITE BLOOD COUNT (AUTO) 5.2 K/uL (4.8-10.8)
--- NOTE | 2020-07-18 16:32 | NUR ---
Pt resting, visible equal rise and fall of chest, VSS, will continue to monitor.
[2020-07-18 16:39] LABS: ANION GAP 7.7 (8-16); CREATININE 0.8 mg/dL (0.6-1.3); POTASSIUM 3.7 mmol/L (3.5-5.1)
--- NOTE | 2020-07-18 17:24 | NUR ---
Patient discharged with v/s stable. Written and verbal after care instructions given and explained. Patient verbalized understanding. Ambulatory with by caregiver. All questions addressed prior to discharge. Advised to follow up with PMD.
[2020-07-18 17:56] VITALS: BP 136/85
== END 2020-07-18 17:24 | disposition home or self-care (01) ==
LOC: MED 15:04
DX: R06.02 Shortness of breath (principal); Z20.822 Contact with and (suspected) exposure to COVID-19; E07.9 Disorder of thyroid, unspecified; Z79.899 Other long term (current) drug therapy
CPT/HCPCS: 36415; 71045; 80048; 84484; 85025; 93005; 99285

== ENCOUNTER 2020-12-22 10:40 | Emergency (ER) | payer OTHER, SELFPAY ==
[~2020-12-22] VITALS: Ht 177.8 cm; Wt 122.5 kg
[2020-12-22 10:40] VITALS: BP 105/66
--- NOTE | 2020-12-22 10:40 | NUR ---
BIBA TO BED 10
--- NOTE | 2020-12-22 10:49 | NUR ---
EMT AT BEDSIDE FOR EKG
--- NOTE | 2020-12-22 11:00 | NUR ---
44/M biba from [facility] with c/o weakness. Patient states for 3 days he has been having chills, fever, fatigue and nausea. Patient denies any symptoms today, stating he feels better, denies taking anything at home. Patient denies chest pain, sob, abdominal pain. Patient alert and oriented x4, answering questions appropriately.
[2020-12-22] MEDS ORDERED: NACL 0.9% 1,000 ML IV ONE (11:45)
--- NOTE | 2020-12-22 11:53 | NUR ---
RAD AT BEDSIDE
--- NOTE | 2020-12-22 12:05 | NUR ---
Labs and novel swab collected and handed to warehouse laborer.
[2020-12-22 12:31] LABS: ALBUMIN 3.2 g/dL (3.4-5.0); ANION GAP 10.9 (8-16); CARBON DIOXIDE 31.9 mmol/L (21-32); CREATININE 1.1 mg/dL (0.6-1.3); POTASSIUM 3.8 mmol/L (3.5-5.1); TOTAL BILIRUBIN 0.5 mg/dL (0.0-1.0)
[2020-12-22 12:55] LABS: HEMATOCRIT 41.8 % (36-52); HEMOGLOBIN 14.1 g/dL (12.0-18.0); MEAN CORPUSCULAR HEMOGLOBIN 32 pg (27-31); MEAN CORPUSCULAR HGB CONC 34 g/dL (33-37); MEAN CORPUSCULAR VOLUME 95.2 fL (80-94); PLATELET COUNT (AUTO) 130 K/uL (140-450); RED BLOOD CELL COUNT(AUTO) 4.39 MIL/uL (4.20-6.10); RED CELL DISTRIBUTION WIDTH 13.5 % (11.6-13.7); WHITE BLOOD COUNT (AUTO) 4.4 K/uL (4.8-10.8)
[2020-12-22 13:27] LABS: EOSINOPHILS % (MANUAL) 2 % (0-4); LYMPHOCYTES % (MANUAL) 32 % (20-46); MONOCYTES % (MANUAL) 9 % (5-12)
[2020-12-22 14:13] VITALS: BP 110/70
--- NOTE | 2020-12-22 15:15 | NUR ---
Patient discharged with v/s stable. Written and verbal after care instructions given and explained. Patient verbalized understanding. Ambulatory with by parent. All questions addressed prior to discharge. Advised to follow up with PMD. PT PICKED UP BY MOTHER AND TAKEN TO [facility]
--- NOTE | 2020-12-25 19:25 | NUR ---
LATE ENTRY- 0.9% NS IVF DISCONTINUED AT 1310
== END 2020-12-22 15:15 | disposition home or self-care (01) ==
LOC: MED 10:40
DX: R19.7 Diarrhea, unspecified (principal); R51.9 Headache, unspecified; R11.2 Nausea with vomiting, unspecified; R07.9 Chest pain, unspecified
CPT/HCPCS: 71045; 80053; 81002; 85025; 93005; 96360; 99285; J7030; U0003

== ENCOUNTER 2021-01-23 21:41 | Emergency (ER) | payer OTHER ==
[~2021-01-23] VITALS: Ht 177.8 cm; Wt 108.9 kg
[2021-01-23 22:15] VITALS: BP 127/90
--- NOTE | 2021-01-23 22:15 | NUR ---
PT OFFLOADED TO BED #13
[2021-01-23] MEDS ORDERED: NITROGLYCERIN 2% 1 GM PKT TP ONE (22:40)
[2021-01-23 22:52] LABS: BASOPHILS % (AUTO) 0.4 % (0.0-2.0); EOSINOPHILS # (AUTO) 0.2 K/uL (0-0.4); EOSINOPHILS % (AUTO) 3.2 % (0.0-4.0); HEMATOCRIT 41.6 % (36-52); LYMPHOCYTES # (AUTO) 1.8 K/uL (2.0-11.5); LYMPHOCYTES % (AUTO) 34.1 % (20.5-51.1); MEAN CORPUSCULAR HEMOGLOBIN 32 pg (27-31); MEAN CORPUSCULAR HGB CONC 34 g/dL (33-37); MEAN CORPUSCULAR VOLUME 95.5 fL (80-94); MONOCYTES # (AUTO) 0.4 K/uL (0.8-1.0); MONOCYTES % (AUTO) 7.2 % (1.7-9.3); NEUTROPHILS # (AUTO) 2.9 K/uL (1.8-7.7); NEUTROPHILS % (AUTO) 55.1 % (42.2-75.2); PLATELET COUNT (AUTO) 130 K/uL (140-450); RED BLOOD CELL COUNT(AUTO) 4.36 MIL/uL (4.20-6.10); RED CELL DISTRIBUTION WIDTH 13.5 % (11.6-13.7); WHITE BLOOD COUNT (AUTO) 5.2 K/uL (4.8-10.8)
[2021-01-23 23:07] LABS: PROTHROMBIN TIME 9.9 secs (10.8-13.4)
[2021-01-23 23:09] LABS: ALBUMIN 3.5 g/dL (3.4-5.0); ANION GAP 7.3 (8-16); CARBON DIOXIDE 33.8 mmol/L (21-32); POTASSIUM 4.1 mmol/L (3.5-5.1); TOTAL BILIRUBIN 0.3 mg/dL (0.0-1.0)
--- NOTE | 2021-01-23 23:45 | NUR ---
S/W PHOEBE SCHWAB FOR UPDATE.
--- NOTE | 2021-01-24 01:05 | NUR ---
CALLED MOMZAHEER FOR PT UPDATE.
--- NOTE | 2021-01-24 02:00 | NUR ---
PT REPORTS COMPLETE RELIEF OF PAIN.
--- NOTE | 2021-01-24 02:15 | NUR ---
PT TAKEN OFF O2. O2 SAT MAINTAINED 97% RA.
--- NOTE | 2021-01-24 02:40 | NUR ---
NOTIFIED BALBINA, PT MOTHER, PT IS UP FOR DISCHARGE. ZAHEER STATES SHE WILL PICK PT UP
[2021-01-24 02:45] VITALS: BP 123/81
--- NOTE | 2021-01-24 02:51 | NUR ---
Patient discharged with v/s stable. Written and verbal after care instructions given and explained. Patient verbalized understanding. Ambulatory with steady gait. All questions addressed prior to discharge. Advised to follow up with PMD.
== END 2021-01-24 02:51 | disposition home or self-care (01) ==
LOC: MED 21:41
DX: R07.89 Other chest pain (principal); I10 Essential (primary) hypertension; E03.9 Hypothyroidism, unspecified; Z79.899 Other long term (current) drug therapy
CPT/HCPCS: 36415; 71045; 80053; 83880; 84484; 85025; 85379; 85610; 85730; 93005; 99285

== ENCOUNTER 2021-03-08 13:45 | Emergency (ER) | payer OTHER ==
[~2021-03-08] VITALS: Ht 177.8 cm; Wt 108.9 kg
[2021-03-08 13:52] VITALS: BP 109/63
--- NOTE | 2021-03-08 13:52 | NUR ---
BIBA TO ER BED9
[2021-03-08] MEDS ORDERED: MORPHINE SULFATE 4 MG/ML SYR IVP ONE (14:00)
--- NOTE | 2021-03-08 14:29 | NUR ---
45/M BIBA WITH C/O CHEST PAIN. PATIENT STATES WHILE AT REST AT HOME HE BEGAN HAVING RIGHT SIDED 6/10 SHARP CHEST PAIN ABOUT 30 MIN PRIOR TO ARRIVAL TO ED. PATIENT REPORTS HE TOOK ASPIRIN WITH NO RELIEF, DENIES COUGH, SOB, FEVER, CHILLS OR N/V/D. PATIENT STATES HE HAS HX OF HAVING A "MILD HEART ATTACK" IN SEPTEMBER. PATIENT PLACED ON BEDSIDE CONCRETE GUN OPERATOR, DR. LORA AWARE OF PATIENT.
[2021-03-08 14:31] LABS: BASOPHILS % (AUTO) 0.2 % (0.0-2.0); EOSINOPHILS # (AUTO) 0.1 K/uL (0-0.4); EOSINOPHILS % (AUTO) 2.9 % (0.0-4.0); HEMATOCRIT 39.6 % (36-52); HEMOGLOBIN 13.5 g/dL (12.0-18.0); LYMPHOCYTES # (AUTO) 1.2 K/uL (2.0-11.5); LYMPHOCYTES % (AUTO) 25.9 % (20.5-51.1); MEAN CORPUSCULAR HEMOGLOBIN 32 pg (27-31); MEAN CORPUSCULAR HGB CONC 34 g/dL (33-37); MEAN CORPUSCULAR VOLUME 95.2 fL (80-94); MONOCYTES # (AUTO) 0.5 K/uL (0.8-1.0); NEUTROPHILS # (AUTO) 2.7 K/uL (1.8-7.7); PLATELET COUNT (AUTO) 127 K/uL (140-450); RED BLOOD CELL COUNT(AUTO) 4.16 MIL/uL (4.20-6.10); RED CELL DISTRIBUTION WIDTH 13.2 % (11.6-13.7); WHITE BLOOD COUNT (AUTO) 4.6 K/uL (4.8-10.8)
[2021-03-08 14:52] LABS: ALBUMIN 3.1 g/dL (3.4-5.0); ANION GAP 7.3 (8-16); CARBON DIOXIDE 34.3 mmol/L (21-32); CREATININE 0.8 mg/dL (0.6-1.3); POTASSIUM 3.6 mmol/L (3.5-5.1); TOTAL BILIRUBIN 0.3 mg/dL (0.0-1.0)
[2021-03-08] MEDS ORDERED: IBUP-2213 PO (18:09)
[2021-03-08] MEDS ORDERED: ATA25 PO (18:09)
[2021-03-08 18:41] VITALS: BP 112/75
--- NOTE | 2021-03-08 18:42 | NUR ---
Patient discharged with v/s stable. Written and verbal after care instructions given and explained. Patient alert, oriented and verbalized understanding of instructions. Ambulatory with steady gait. All questions addressed prior to discharge. ID band removed. Patient advised to follow up with PMD. Rx of HYDROXYZINE HYDROCHLORIDE AND IBUPROFEN given. Patient educated on indication of medication including possible reaction and side effects. Opportunity to ask questions provided and answered.
== END 2021-03-08 18:41 | disposition home or self-care (01) ==
LOC: MED 13:45
DX: R07.89 Other chest pain (principal); I10 Essential (primary) hypertension; E03.9 Hypothyroidism, unspecified; I25.2 Old myocardial infarction; Z79.899 Other long term (current) drug therapy
CPT/HCPCS: 36415; 71045; 80053; 83880; 84484; 85025; 93005; 96374; 99284; J2270; Q0092

== ENCOUNTER 2021-09-01 06:19 | Emergency (ER) | payer OTHER ==
[~2021-09-01] VITALS: Ht 170.2 cm; Wt 127.0 kg
[~2021-09-01 06:19] MED LIST changes: -ARIP882S IM; +ARIP882S2 IM; +ATA25 PO; +IBUP-2213 PO
[2021-09-01 06:20] VITALS: BP 139/93
--- NOTE | 2021-09-01 06:20 | NUR ---
PT ALETHEA ALS. TAKEN TO BED 11
--- NOTE | 2021-09-01 06:24 | NUR ---
Dr. Sevilla examining patient.
--- NOTE | 2021-09-01 06:35 | NUR ---
LAB AT BEDSIDE
--- NOTE | 2021-09-01 06:37 | NUR ---
45 yo m petrona from a [facility] residential with c/c of 6/10 nonrad burning sternal chest pain x1hr that began at rest. pt recieved 324mg of asa and 0.4mg of nitro on route with relief, pt states pain is now 5/10. pt has an iv to left hand 20g. pt denies sob. mother called and reported pt is special needs, has a history of gerd and was just prescribed medication for it. aziza delcid [id number]. hx:mi x1yr ago quinn
--- NOTE | 2021-09-01 06:45 | NUR ---
X-Ray at bedside.
--- NOTE | 2021-09-01 06:47 | NUR ---
pt's caregiver kathy at bedside.
--- NOTE | 2021-09-01 06:47 | NUR ---
pt has hx of mild ID, tourette's syndrome, hypothyriodism, hyperlipidemia
[2021-09-01] MEDS ORDERED: ATOR40TA PO (07:03)
[2021-09-01] MEDS ORDERED: CITA20TA15 PO (07:03)
[2021-09-01] MEDS ORDERED: NITR0.4T2 SL (07:03)
[2021-09-01] MEDS ORDERED: ARIP20TA1 PO (07:03)
[2021-09-01] MEDS ORDERED: SYN.05 PO (07:03)
[2021-09-01] MEDS ORDERED: ALBU0.0912 INH (07:03)
[2021-09-01] MEDS ORDERED: CLOP75TA55 PO (07:03)
[2021-09-01] MEDS ORDERED: IBUP-1842 PO (07:03)
[2021-09-01] MEDS ORDERED: DIVA500T1 PO (07:03)
[2021-09-01] MEDS ORDERED: CARV12.5 PO (07:03)
[2021-09-01] MEDS ORDERED: QUET200T PO ×2 (07:03)
[2021-09-01] MEDS ORDERED: BUS5 PO (07:03)
--- NOTE | 2021-09-01 07:15 | NUR ---
Pt report given to diogenes ronquillo. Transfer of care at this time.
--- NOTE | 2021-09-01 07:16 | NUR ---
RECEIVED REPORT FROM YAYA BANEGAS. TRANSFER OF CARE AT THIS TIME.
[2021-09-01 07:33] LABS: BASOPHILS % (AUTO) 0.6 % (0.0-2.0); EOSINOPHILS # (AUTO) 0.2 K/uL (0-0.4); EOSINOPHILS % (AUTO) 3.1 % (0.0-4.0); HEMOGLOBIN 14.8 g/dL (12.0-18.0); LYMPHOCYTES # (AUTO) 1.8 K/uL (2.0-11.5); LYMPHOCYTES % (AUTO) 36.5 % (20.5-51.1); MEAN CORPUSCULAR HEMOGLOBIN 32 pg (27-31); MEAN CORPUSCULAR HGB CONC 34 g/dL (33-37); MEAN CORPUSCULAR VOLUME 92.5 fL (80-94); MONOCYTES # (AUTO) 0.4 K/uL (0.8-1.0); MONOCYTES % (AUTO) 7.5 % (1.7-9.3); NEUTROPHILS # (AUTO) 2.6 K/uL (1.8-7.7); NEUTROPHILS % (AUTO) 52.3 % (42.2-75.2); PLATELET COUNT (AUTO) 165 K/uL (140-450); RED BLOOD CELL COUNT(AUTO) 4.65 MIL/uL (4.20-6.10); RED CELL DISTRIBUTION WIDTH 13.1 % (11.6-13.7)
[2021-09-01 07:38] LABS: ALBUMIN 3.6 g/dL (3.4-5.0); ANION GAP 5.6 (8-16); CARBON DIOXIDE 35.1 mmol/L (21-32); CREATININE 0.9 mg/dL (0.6-1.3); POTASSIUM 3.7 mmol/L (3.5-5.1); TOTAL BILIRUBIN 0.7 mg/dL (0.0-1.0)
--- NOTE | 2021-09-01 08:10 | NUR ---
PT RESTING IN BED, CAEGIVER AT PT BEDSIDE. VSS, WILL CONTINUE TO MONITOR.
--- NOTE | 2021-09-01 09:50 | NUR ---
PT RESTING COMFORTABLY, NO COMPLAINTS AT THIS TIME, CAREGIVER AT BEDSIDE. VSS. WILL CONTINUE TO MONITOR.
[2021-09-01] MEDS ORDERED: IBUP-2213 PO (10:03)
[2021-09-01 10:14] VITALS: BP 126/83
--- NOTE | 2021-09-01 10:15 | NUR ---
Patient discharged with v/s stable. Written and verbal after care instructions given FOR CHEST WALL PAIN and explained. Patient verbalized understanding. Ambulatory with by caregiver. All questions addressed prior to discharge. Advised to follow up with PMD.
== END 2021-09-01 10:14 | disposition home or self-care (01) ==
LOC: MED 06:19
DX: R07.89 Other chest pain (principal); I10 Essential (primary) hypertension; E03.9 Hypothyroidism, unspecified; I25.2 Old myocardial infarction; Z79.899 Other long term (current) drug therapy
CPT/HCPCS: 36415; 71045; 80053; 83880; 84484; 85025; 93005; 99285; Q0092